=== PATIENT | male | born 1955 | race Caucasian/White ===

== ENCOUNTER → 2021-06-22 | Outpatient (CLI) | payer BC ==
[~2021-06-22] MED LIST: BETAPACE120 MG PO; COLACE 100MG C100 MG PO; ECOTRIN81 MG PO; ELIQUIS5 MG PO; LEVAQUIN500 MG PO; PERCOCET 5/325 T1 EA PO; TYLENOL W/CODEIN1 E1 PO
== END ==
LOC: HEART 5 13:44
DX: I25.10 Atherosclerotic heart disease of native coronary artery without angina pectoris (principal); I48.0 Paroxysmal atrial fibrillation; I49.5 Sick sinus syndrome; I08.3 Combined rheumatic disorders of mitral, aortic and tricuspid valves; I27.20 Pulmonary hypertension, unspecified
CPT/HCPCS: 93306